=== PATIENT | female | born 1985 | race Caucasian/White ===

== ENCOUNTER 2020-10-15 13:19 | Outpatient (CLI) | payer OTHER | END 2020-10-15 13:20 | disposition home or self-care (01) | LOC: COV 13:19 | PROVIDERS: ATTEND Family Medicine | DX: R06.02 Shortness of breath (principal); Z20.828 Contact with and (suspected) exposure to other viral communicable diseases; J02.9 Acute pharyngitis, unspecified; R09.81 Nasal congestion ==